=== PATIENT | male | born 1945 | race American Indian/Alaskan Native ===

== ENCOUNTER 2018-07-18 18:46 | Emergency (ER) | payer MEDICARE ==
--- NOTE | 2018-07-18 19:07 | Emergency Department Report ---
Blank Doc - Documentation Documentation: This is a 73-year-old male that presents with right eye blurry vision and head ache. HX of CVA. Denies one sided weakness. Exam: neuro exam normal. No one sided weakness. Normal strength. This initial assessment/diagnostic orders/clinical plan/treatment(s) is/are subject to change based on patient's health status, clinical progression and re- assessment by fellow clinical providers in the ED. Further treatment and workup at subsequent clinical providers discretion. Patient/guardians urged not to elope from the ED as their condition may be serious if not clinically assessed and managed. Initial orders include: 1- Patient sent to [facility] for further evaluation and treatment 2- CT head 3- labs
[2018-07-18 19:43] LABS: Basophils % (Auto) 0.7 % (0.0-1.8); Eosinophils # (Auto) 0.1 K/mm3 (0.0-0.4); Eosinophils % (Auto) 2.9 % (0.0-4.3); Hematocrit 53.2 % (35.5-45.6); Hemoglobin 17.5 gm/dl (11.8-15.2); Lymphocytes # (Auto) 1.4 K/mm3 (1.2-5.4); Lymphocytes % (Auto) 33.2 % (13.4-35.0); Mean Corpuscular HGB Conc 33 % (32-34); Mean Corpuscular Volume 89 fl (84-94); Monocytes # (Auto) 0.5 K/mm3 (0.0-0.8); Monocytes % (Auto) 11.1 % (0.0-7.3); Platelet Count 145 K/mm3 (140-440); Red Cell Distribution Width 14.9 % (13.2-15.2)
--- NOTE | 2018-07-18 19:52 | Cat Scan Report ---
PROCEDURE: CT HEAD/BRAIN WO CON TECHNIQUE: Computerized tomography of the head was performed without contrast material. CT DOSE LENGTH PRODUCT: 920.5 mGycm HISTORY: R/O bleed. Right eye blurred vision/NAG COMPARISONS: None . FINDINGS: No CT evidence of intracranial mass, hemorrhage, acute territorial infarction, or hydrocephalus. Intr acranial arteries are symmetric in density. Calvarium is intact. There has been prior right sinus cici herbert. There is mild right maxillary sinus mucosal thickening. Mastoids are aerated. IMPRESSION: No CT evidence of acute intracranial abnormality. Right maxillary sinus mucosal thickening . This document is electronically signed by Nita Paredes MD., July 18 2018 07:49:27 PM ET
[2018-07-18 19:53] LABS: Calcium 9.8 mg/dL (8.4-10.2)
--- NOTE | 2018-07-18 20:34 | Emergency Department Report ---
ED Headache HPI - General Chief Complaint: Headache Stated Complaint: RT EYE BLURRED VISION/HEADACHE Time Seen by Provider: 07/18/18 19:05 - History of Present Illness Initial Comments: 73-year-old male with history of CVA in the past presents to the ED with complaint of right-sided eye pain and headache. Patient states headache has been present for 1-2 weeks, however, worsened over the last 4 days. Today, patient reports his vision worsened significantly in the right eye. Patient reports history of eye problems on the right. Was seen by eye doctor approximately one month ago and referred to a specialist. Patient is unsure what type of eye surgeon. Patient denies history of glaucoma, however reports history of laser eye surgery in the right eye several years ago, for both retinal detachment and also cataract. He reports that right eye vision has been worse than the left since his CVA a few years ago. However, pt states that he was able to see images much better than he can currently. Patient states that it does seem like a curtain coming down over his vision. Pt states he took aspirin for the pain, without relief. Pain is intermittent, no aggravating/ alleviating factors. Denies nausea/ vomiting. Pain is currently resolved at this time. All of pt's records are in [place], [place]. States he lives both here and in [place]. Timing/Duration: 1 week Quality: severe, throbbing Associated Symptoms: vision changes. denies: facial pain, fever/chills, loss of consciousness, nausea/vomiting, stiff neck Allergies/Adverse Reactions: Allergies No Known Allergies Allergy (Unverified 07/18/18 18:51) ED Review of Systems ROS: Stated complaint: RT EYE BLURRED VISION/HEADACHE Other details as noted in HPI Comment: All other systems reviewed and negative Constitutional: denies: chills, fever Eyes: eye pain, vision change Gastrointestinal: denies: nausea, vomiting Neurological: headache. denies: weakness, numbness, paresthesias ED Past Medical Hx - Past Medical History Previous Medical History?: Yes Hx CVA: Yes - Surgical History Past Surgical History?: Yes Additional Surgical History: Nasal surgery - Social History Smoking Status: Never Smoker Substance Use Type: None ED Physical Exam - General Limitations: No Limitations General appearance: alert, in no apparent distress - Head Head exam: Present: atraumatic, normocephalic - Eye Eye exam: Present: EOMI, other (IOP right eye 3 readings: 26, 25, 26; IOP left eye 3 readings: 15, 15, 16). Absent: conjunctival injection Pupils: Present: irregular (pt is unsure if right pupil is irregulary shaped at baseline), other (rigt pupil larger than left and irregularly shaped) - ENT ENT exam: Present: mucous membranes dry - Neck Neck exam: Present: normal inspection, full ROM. Absent: tenderness - Respiratory Respiratory exam: Present: normal lung sounds bilaterally. Absent: respiratory distress - Cardiovascular Cardiovascular Exam: Present: regular rate, normal rhythm - GI/Abdominal GI/Abdominal exam: Present: soft. Absent: distended - Extremities Exam Extremities exam: Present: normal inspection - Neurological Exam Neurological exam: Present: alert, oriented X3. Absent: motor sensory deficit - Psychiatric Psychiatric exam: Present: normal affect, normal mood - Skin Skin exam: Present: warm, dry, intact, normal color. Absent: rash ED Course Vital Signs 07/18/18 07/18/18 07/18/18 19:06 22:00 22:21 Pulse Rate 83 88 Respiratory 16 15 15 Rate Blood Pressure 149/92 144/87 [Right] O2 Sat by Pulse 97 96 96 Oximetry - Consultations Consultation #1: 07/18/18 20:58 [facility] transfer line contacted for ophthalmology 07/18/18 21:18 Spoke w/ rocio Oquendo on-call at [facility]. Agrees to see pt in the ER at [facility]. 07/18/18 22:02 Spoke w/ Barrie from transfer line. States pt will be accepted by both Dr Branham and Dr Poncho Alfonso ED Medical Decision Making - Lab Data Result diagrams: 07/18/18 19:10 07/18/18 19:10 - Radiology Data Radiology results: report reviewed, image reviewed - Medical Decision Making 73-year-old male with history of previous right eye surgery secondary to retinal detachment and cataract presents to ED with right eye pain and decreased vision. CT head negative for any acute hemorrhage or infarct. The patient is pain-free at this time. Exam shows irregular right pupil, extraocular movements intact bilaterally, mildly elevated IOP in the right eye compared to the left. Concern for retinal detachment, acute glaucoma. Spoke with Dr Branham, md physician dermatologist [facility] [employer] [facility] at [facility]. Agrees to accept transfer to the ER for gayle garza. - Differential Diagnosis retinal detachment, acute glaucoma, uveitis Critical Care Time: Yes Critical care time in (mins) excluding proc time.: 35 Critical care attestation.: If time is entered above; I have spent that time in minutes in the direct care of this critically ill patient, excluding procedure time. Critical Care Time: 35 minutes ED Disposition Clinical Impression: Headache, acute, Vision disturbance Disposition: [id number]/TX-[id number] ANOTHER TYPE HLTHCARE Is pt being admited?: No Condition: Stable Referrals: NILAM BECKWITH MD [Referring] - 3-5 Days Time of Disposition: 21:20
[2018-07-18 22:22] VITALS: BP 144/87
== END 2018-07-18 23:00 | disposition other institution (70) ==
LOC: ED 18:46
DX: H53.8 Other visual disturbances (principal); Z79.82 Long term (current) use of aspirin; Z87.820 Personal history of traumatic brain injury
CPT/HCPCS: 36415; 70450; 80048; 85025; 99291